=== PATIENT | male | born 1960 | race Caucasian/White ===

== ENCOUNTER 2022-05-22 12:09 | Emergency (ER) | payer OTHER ==
[~2022-05-22] VITALS: Ht 185.4 cm; Wt 137.9 kg
[2022-05-22] MEDS ORDERED: BROMFED DM COU118 ML PO (13:46)
[2022-05-22 13:54] VITALS: BP 148/87
== END 2022-05-22 13:55 | disposition home or self-care (01) ==
LOC: FSED 12:15
DX: R05.9 Cough, unspecified (principal); U07.1 COVID-19; J20.9 Acute bronchitis, unspecified
CPT/HCPCS: 71046; 99283